=== PATIENT | female | born 1975 | race Caucasian/White ===

== ENCOUNTER 2018-02-12 12:06 | Emergency (ER) | payer OTHER ==
[2018-02-12] MEDS ORDERED: NS 1,000 ML IV ONE ×2 (12:38→14:00)
--- NOTE | 2018-02-12 12:41 | EDPHY ---
HPI/HX/ROS/PE/MDM Narrative: CHIEF COMPLAINT: Chest pain, weakness, drowsiness HISTORY OF PRESENT ILLNESS: The patient is a 42 y/o female with a history of asthma and anemia complaining of chest discomfort, tingling, dizziness, and lethargy which started this morning when she woke. She was on vacation in [place] and returned home last night. She felt normal in [place] and when she returned last night. She is living with her boyfriend who owns a carpet cleaning business and stores chemicals in the basement. They noticed a chemical smell when they entered the house, but that is not completely unusual. The cleaning chemicals are in bottles which have been capped. They believe the humidifier may have accelerated the evaporation of chemicals. This morning, she awoke with chest pain, fatigue, and weakness. She took her inhaler which helped slightly. She reports it feels hard to move. She denies headache, vomiting, urinary complaints, palpitations, fainting, abdominal pain, flank pain, urinary complaints. She denies using alcohol or other drugs. She denies any other recent travel. Her menstrual period is now and is normal. She has a tampon she inserted this morning. Her boyfriend, who also slept in the house last night, feels he may have some flu symptoms and chest pain. REVIEW OF SYSTEMS: Aside from elements discussed in the HPI, a comprehensive 10-point review of systems was reviewed and is negative. PAST MEDICAL HISTORY: Asthma, anemia, slightly low thyroid SOCIAL HISTORY: Lives with her boyfriend, unemployed, nonsmoker VITAL SIGNS: Reviewed by me. Patient has temperature on arrival of 38.4, she is tachycardic, and has a room air sat 91%. GENERAL: Well-developed, well-nourished, in no respiratory distress. Slightly pale, fluttering eyelids. Generally weak though questionable as to patient's effort. HEENT: Atraumatic. Eyes: No nystagmus. Fluttering eyelids. No icterus, no injection. Mouth: moist mucous membranes. No erythema or lesions. Neck: supple with no adenopathy. No meningismus. LUNGS: Lung sound diminished throughout. Clear to auscultation bilaterally, no wheezes, rhonchi or rales. CARDIAC: Tachycardic rate and rhythm, no rubs, murmurs or gallops. ABDOMEN: Soft, nontender, nondistended, bowel sounds normal. BACK: No CVA tenderness. EXTREMITIES: No trauma. No edema. Range of motion is normal throughout. NEURO: Alert and oriented, cranial nerves 2-12 intact. Patient is moving all extremities but reports significant weakness. There may be a volitional component to this. SKIN: Warm and dry, no rash. PSYCHIATRIC: Normal mentation, no agitation. ED Course: X-ray: Chest x-ray was obtained. I viewed the images myself on the PACS system. My interpretation of the images is: normal chest. The radiologist interpretation is pending at this time. I discussed the x-ray findings with the patient. The patient presents with a fever, tachycardia, slightly low oxygen level, and complaints of chest discomfort. She is slow to answer questions, fluttering eyes. She is tachycardic, febrile, and generally weak, though there is questionable effort. She feels the carpet cleaning chemicals in the basement of her boyfriends apartment may have poisoned her. She has diminished breath sounds. Plan for extensive labs including CBC, basic metabolic panel, lactic acid, liver enzymes, lipase, bilirubin, coagulation, TSH and respiratory panel, urinalysis, and chest x-ray. Patient's i-STAT is largely unremarkable with the exception of slight anemia. Lactic acid was normal. Patient declined chest x-ray initially. She received 2 L of normal saline and remained somewhat tachycardic. Patient did have respiratory pathogen panel sent. She would like to see these results before undergoing a chest x-ray. She feels strongly that she does not have a bacterial infection at, however, her only focal source for some type of infectious source seems to be pulmonary. Respiratory pathogen panel is negative. Chest x-ray demonstrates no infiltrate. Urinalysis has some white cells and bacteria, however, patient is on her period. She denies any clear urinary tract symptoms. This was sent for culture. Patient was re-evaluated on multiple occasions. Her heart remains persistently elevated. She reports that the albuterol neb improved her shortness of breath. Overall her mentation has significantly improved, she is bright, alert, and talking to me without difficulty. She does however complain of tingling from her elbows to her hands bilaterally. D-dimer was ordered. This is slightly elevated 0.53. Of note patient's TSH is also significantly suppressed at 0.431. Free T4 is normal. Patient is in agreement to have a CT scan of her chest to evaluate for pulmonary embolism as an explanation for her persistent tachycardia and respiratory complaints. CT for pulmonary embolism is negative. On re-evaluation, patient continues to have a low-grade tachycardia. She reports persistant tingling in upper extemities from elbows down. On review of patients VBG, she is mildly acidotic and I suspect she may be hyperventilating with resultant perithesias. Denies headache, neck pain, focal weakness, stroke history. She was discharged with instructions regarding remaining adequately hydrated, Tylenol or ibuprofen as needed for fever, follow up with her primary care physician regarding her thyroid function, continue to use her albuterol inhaler , and take prednisone is indicated. Sepsis Evaluation Note: The patient presents to the ED with potential infection identified as pneumonia versus urinary tract infection. The patient did have evidence of sepsis with temperature greater than 38 degree Celsius, heart rate greater than 90, and WBC greater than 12,000. She had a normal lactic acid and otherwise normal labs. She does not have any evidence of severe sepsis. MDM: Differential diagnoses for the patient's symptom complex was considered including but not limited to asthma exacerbation, pneumonia, influenza, viral syndrome, urinary tract infection, toxic shock, chemical pneumonitis, pulmonary embolism. - Data Points Imaging Results: Imaging Impressions Chest X-Ray 02/12/18 12:36 Impression: Normal chest x-ray. Chest/Thorax CTA 02/12/18 16:42 Impression: 1. No evidence of pulmonary embolus using CT protocol. 2. Normal CT chest. Findings discussed with Ellen Prado MD at 17:18 hour, 02/12/2018. Laboratory Results: Laboratory Results 02/12/18 12:45 02/12/18 12:45 02/12/18 02/12/18 02/12/18 13:50 12:45 12:45 WBC RBC Hgb POC Hgb Hct POC Hct MCV MCH MCHC RDW Plt Count MPV Neut % (Auto) Lymph % (Auto) Meigs % (Auto) Eos % (Auto) Baso % (Auto) Nucleat RBC Rel Count Absolute Neuts (auto) Absolute Lymphs (auto) Absolute Monos (auto) Absolute Eos (auto) Absolute Basos (auto) Absolute Nucleated RBC Immature Gran % Immature Gran # RBC/WBC/PLT Morphology Platelet Estimate PT INR APTT D-Dimer POC Blood Source Patient Temperature POC VBG pH POC VBG pCO2 POC VBG pO2 POC VBG HCO3 POC VBG Total CO2 POC VBG Base Excess VBG Lactic Acid POC Mix VBG O2 Sat POC Sodium Sodium POC Potassium Potassium POC Chloride Chloride Carbon Dioxide Anion Gap POC BUN BUN Creatinine POC Creatinine Estimated GFR Glucose POC Glucose POC Lactic Acid Roberto Carlos Calcium Total Bilirubin Conjugated Bilirubin Unconjugated Bilirubin AST ALT Alkaline Phosphatase Total Protein Albumin Lipase TSH Free T4 1.54 ng/dL ng/dL (0.59-2.19) Beta HCG, Qual NEGATIVE Urine Color PALE YELLOW Urine Appearance CLEAR Urine pH 6.0 (5.0-7.5) Ur Specific [place] 1.001 L (1.002-1.030) Urine Protein NEGATIVE (NEGATIVE) Urine Ketones NEGATIVE (NEGATIVE) Urine Blood 2+ H (NEGATIVE) Urine Nitrate NEGATIVE (NEGATIVE) Urine Bilirubin NEGATIVE (NEGATIVE) Urine Urobilinogen NEGATIVE EU EU (0.2-1.0) Ur Leukocyte Esterase 2+ H (NEGATIVE) Urine RBC 3-5 /hpf H /hpf (0-3) Urine WBC 10-15 /hpf H /hpf (0-3) Ur Epithelial Cells TRACE /lpf /lpf (NONE-1+) Urine Bacteria TRACE /hpf H /hpf (NONE SEEN) Urine Glucose NEGATIVE (NEGATIVE) 02/12/18 02/12/18 02/12/18 12:45 12:45 12:45 WBC 16.70 10^3/uL H 10^3/uL (3.80-9.50) RBC 3.94 10^6/uL L 10^6/uL (4.18-5.33) Hgb 11.4 g/dL L g/dL (12.6-16.3) POC Hgb Hct 34.4 % L % (38.0-47.0) POC Hct MCV 87.3 fL fL (81.5-99.8) MCH 28.9 pg pg (27.9-34.1) MCHC 33.1 g/dL g/dL (32.4-36.7) RDW 15.1 % % (11.5-15.2) Plt Count 223 10^3/uL 10^3/uL (150-400) MPV 10.0 fL fL (8.7-11.7) Neut % (Auto) 92.0 % H % (39.3-74.2) Lymph % (Auto) 3.1 % L % (15.0-45.0) Meigs % (Auto) 4.1 % L % (4.5-13.0) Eos % (Auto) 0.2 % L % (0.6-7.6) Baso % (Auto) 0.2 % L % (0.3-1.7) Nucleat RBC Rel Count 0.0 % % (0.0-0.2) Absolute Neuts (auto) 15.36 10^3/uL H 10^3/uL (1.70-6.50) Absolute Lymphs (auto) 0.52 10^3/uL L 10^3/uL (1.00-3.00) Absolute Monos (auto) 0.68 10^3/uL 10^3/uL (0.30-0.80) Absolute Eos (auto) 0.04 10^3/uL 10^3/uL (0.03-0.40) Absolute Basos (auto) 0.04 10^3/uL 10^3/uL (0.02-0.10) Absolute Nucleated RBC 0.00 10^3/uL 10^3/uL (0-0.01) Immature Gran % 0.4 % % (0.0-1.1) Immature Gran # 0.06 10^3/uL 10^3/uL (0.00-0.10) RBC/WBC/PLT Morphology TNP Platelet Estimate TNP PT 14.5 SEC SEC (12.0-15.0) INR 1.11 (0.83-1.16) APTT 23.2 SEC SEC (23.0-38.0) D-Dimer POC Blood Source Patient Temperature POC VBG pH POC VBG pCO2 POC VBG pO2 POC VBG HCO3 POC VBG Total CO2 POC VBG Base Excess VBG Lactic Acid 1.2 mmol/L mmol/L (0.7-2.1) POC Mix VBG O2 Sat POC Sodium Sodium POC Potassium Potassium POC Chloride Chloride Carbon Dioxide Anion Gap POC BUN BUN Creatinine POC Creatinine Estimated GFR Glucose POC Glucose POC Lactic Acid [place] Calcium Total Bilirubin Conjugated Bilirubin Unconjugated Bilirubin AST ALT Alkaline Phosphatase Total Protein Albumin Lipase TSH Free T4 Beta HCG, Qual Urine Color Urine Appearance Urine pH Ur Specific [place] Urine Protein Urine Ketones Urine Blood Urine Nitrate Urine Bilirubin Urine Urobilinogen Ur Leukocyte Esterase Urine RBC Urine WBC Ur Epithelial Cells Urine Bacteria Urine Glucose 02/12/18 02/12/18 02/12/18 12:45 12:37 12:25 WBC RBC Hgb POC Hgb 11.9 gm/dL L gm/dL (12.6-16.3) Hct POC Hct 35 % L % (38-47) MCV MCH MCHC RDW Plt Count MPV Neut % (Auto) Lymph % (Auto) [place] % (Auto) Eos % (Auto) Baso % (Auto) Nucleat RBC Rel Count Absolute Neuts (auto) Absolute Lymphs (auto) Absolute Monos (auto) Absolute Eos (auto) Absolute Basos (auto) Absolute Nucleated RBC Immature Gran % Immature Gran # RBC/WBC/PLT Morphology Platelet Estimate PT INR APTT D-Dimer POC Blood Source VENOUS Patient Temperature 38.2 DEGREES DEGREES POC VBG pH 7.47 H (7.31-7.42) POC VBG pCO2 32 mmHg L mmHg (40-44) POC VBG pO2 39 mmHg mmHg (35-40) POC VBG HCO3 23 mEq/L mEq/L (22-26) POC VBG Total CO2 24 mEq/L mEq/L (21-27) POC VBG Base Excess -1.0 mEq/L mEq/L (-2.5-2.5) VBG Lactic Acid POC Mix VBG O2 Sat 75 % % (65-75) POC Sodium 140 mEq/L mEq/L (135-145) Sodium 136 mEq/L mEq/L (135-145) POC Potassium 3.6 mEq/L mEq/L (3.3-5.0) Potassium 3.7 mEq/L mEq/L (3.3-5.0) POC Chloride 104 mEq/L mEq/L (97-110) Chloride 104 mEq/L mEq/L (97-110) Carbon Dioxide 24 mEq/l mEq/l (22-31) Anion Gap 8 mEq/L mEq/L (8-16) POC BUN 10 mg/dL mg/dL (7-23) BUN 12 mg/dL mg/dL (7-23) Creatinine 0.7 mg/dL mg/dL (0.6-1.0) POC Creatinine 0.8 mg/dL mg/dL (0.6-1.0) Estimated GFR > 60 Glucose 97 mg/dL mg/dL (70-100) POC Glucose 103 mg/dL H mg/dL (70-100) POC Lactic Acid Roberto [place] 1.0 mmol/L mmol/L (0.7-2.1) Calcium 8.8 mg/dL mg/dL (8.5-10.4) Total Bilirubin 0.5 mg/dL mg/dL (0.1-1.4) Conjugated Bilirubin 0.3 mg/dL mg/dL (0.0-0.5) Unconjugated Bilirubin 0.2 mg/dL mg/dL (0.0-1.1) AST 18 IU/L IU/L (14-46) ALT 29 IU/L IU/L (9-52) Alkaline Phosphatase 42 IU/L IU/L (38-126) Total Protein 6.5 g/dL g/dL (6.3-8.2) Albumin 3.6 g/dL g/dL (3.5-5.0) Lipase 104 IU/L IU/L (23-300) TSH 0.431 uIU/mL L uIU/mL (0.465-4.680) Free T4 Beta HCG, Qual Urine Color Urine Appearance Urine pH Ur Specific [place] Urine Protein Urine Ketones Urine Blood Urine Nitrate Urine Bilirubin Urine Urobilinogen Ur Leukocyte Esterase Urine RBC Urine WBC Ur Epithelial Cells Urine Bacteria Urine Glucose 02/12/18 12:15 WBC RBC Hgb POC Hgb Hct POC Hct MCV MCH MCHC RDW Plt Count MPV Neut % (Auto) Lymph % (Auto) [place] % (Auto) Eos % (Auto) Baso % (Auto) Nucleat RBC Rel Count Absolute Neuts (auto) Absolute Lymphs (auto) Absolute Monos (auto) Absolute Eos (auto) Absolute Basos (auto) Absolute Nucleated RBC Immature Gran % Immature Gran # RBC/WBC/PLT Morphology Platelet Estimate PT INR APTT D-Dimer 0.53 ug/mLFEU H ug/mLFEU (0.00-0.50) POC Blood Source Patient Temperature POC VBG pH POC VBG pCO2 POC VBG pO2 POC VBG HCO3 POC VBG Total CO2 POC VBG Base Excess VBG Lactic Acid POC Mix VBG O2 Sat POC Sodium Sodium POC Potassium Potassium POC Chloride Chloride Carbon Dioxide Anion Gap POC BUN BUN Creatinine POC Creatinine Estimated GFR Glucose POC Glucose POC Lactic Acid [place] Calcium Total Bilirubin Conjugated Bilirubin Unconjugated Bilirubin AST ALT Alkaline Phosphatase Total Protein Albumin Lipase TSH Free T4 Beta HCG, Qual Urine Color Urine Appearance Urine pH Ur Specific [place] Urine Protein Urine Ketones Urine Blood Urine Nitrate Urine Bilirubin Urine Urobilinogen Ur Leukocyte Esterase Urine RBC Urine WBC Ur Epithelial Cells Urine Bacteria Urine Glucose Medications Given: Discontinued Medications Acetaminophen (Tylenol) 1,000 mg PO EDNOW ONE Stop: 02/12/18 13:03 Last Admin: 02/12/18 16:26 Dose: 1,000 mg Albuterol (Proventil Neb) 3 ml IH EDNOW ONE Stop: 02/12/18 13:03 Last Admin: 02/12/18 13:16 Dose: 3 ml Sodium Chloride (Ns) 1,000 mls @ 0 mls/hr IV ONCE ONE; Wide Open PRN Reason: Protocol Stop: 02/12/18 12:39 Last Admin: 02/12/18 13:15 Dose: 1,000 mls Sodium Chloride (Ns) 1,000 mls @ 0 mls/hr IV ONCE ONE; Wide Open PRN Reason: Protocol Stop: 02/12/18 14:01 Last Admin: 02/12/18 14:03 Dose: 1,000 mls Ibuprofen (Motrin) 600 mg PO EDNOW ONE Stop: 02/12/18 13:03 Last Admin: 02/12/18 16:26 Dose: 600 mg Methylprednisolone Sodium Succinate (Solu-Medrol) 125 mg IVP EDNOW ONE Stop: 02/12/18 16:14 Last Admin: 02/12/18 16:26 Dose: 125 mg Point of Care Test Results: Chemistry 02/12/18 12:25 POC Sodium 140 mEq/L mEq/L (135-145) POC Potassium 3.6 mEq/L mEq/L (3.3-5.0) POC Chloride 104 mEq/L mEq/L (97-110) POC BUN 10 mg/dL mg/dL (7-23) POC Creatinine 0.8 mg/dL mg/dL (0.6-1.0) POC Glucose 103 mg/dL H mg/dL (70-100) Blood Gas/Lactic Acid-Arterial 02/12/18 12:37 POC Blood Source VENOUS Blood Gas/Lactic Acid-Venous 02/12/18 12:37 POC VBG pH 7.47 H (7.31-7.42) POC VBG pCO2 32 mmHg L mmHg (40-44) POC VBG pO2 39 mmHg mmHg (35-40) POC VBG HCO3 23 mEq/L mEq/L (22-26) POC VBG Total CO2 24 mEq/L mEq/L (21-27) POC VBG Base Excess -1.0 mEq/L mEq/L (-2.5-2.5) POC Mix VBG O2 Sat 75 % % (65-75) POC Lactic Acid Roberto Carlos 1.0 mmol/L mmol/L (0.7-2.1) ISTAT H&H 02/12/18 12:25 POC Hgb 11.9 gm/dL L gm/dL (12.6-16.3) POC Hct 35 % L % (38-47) Microbiology Results: MICROBIOLOGY 02/12/18 13:00 Nasal, Sinus - Swab Respiratory Panel (PCR) - Final No Organism Detected General Initial Vital Signs: Initial Vital Signs Temperature (C) 38.2 C 02/12/18 12:08 Heart Rate 118 H 02/12/18 12:08 Respiratory Rate 16 02/12/18 12:08 Blood Pressure 112/68 02/12/18 12:08 O2 Sat (%) 90 L 02/12/18 12:08 O2 Delivery Mode Room Air O2 (L/minute) 2 Allergies/Adverse Reactions: No Known Allergies Allergy (Unverified 02/12/18 14:06) Home Medications: Medication Instructions Recorded Albuterol 02/12/18 Cephalexin [Keflex (RX)] 500 mg PO TID 7 Days cap 02/12/18 predniSONE 40 mg PO DAILY #6 tab 02/12/18 Departure - Departure Disposition: Home, Routine, Self-Care Clinical Impression: Tachycardia Dyspnea Qualifiers: Dyspnea type: unspecified Qualified Code(s): R06.00 - Dyspnea, unspecified Asthma Qualifiers: Asthma severity: mild Asthma persistence: intermittent Asthma complication type : with acute exacerbation Qualified Code(s): J45.21 - Mild intermittent asthma with (acute) exacerbation Condition: Good Instructions: Cephalexin (By mouth), Prednisone (By mouth), Asthma (ED), Hyperthyroidism (ED), Dyspnea (ED) Additional Instructions: Please take the prednisone as directed. This will help with any inflammation irritation in her lung secondary to chemical exposure verses viral infection. Please continue to use your albuterol inhaler. Please drink plenty of fluids and get plenty of rest. Please follow up with primary care physician on Thursday for further evaluation of your thyroid abnormalities. Your urine has been sent for culture. The results of the urine culture will be available in 24-36 hr. If you do have a urinary tract infection, encourage you to take antibiotics as directed. Referrals: NONE *PRIMARY CARE P,. [Primary Care Provider] - As per Instructions Kirti Sandoval MD [Medical Doctor] - As per Instructions (Follow up with Dr. Sandoval or physician of your choice without fail if you're not improving as expected over the next 2-3 days. ) Prescriptions: Cephalexin [Keflex (RX)] 500 mg PO TID 7 Days cap predniSONE 40 mg PO DAILY #6 tab Report Scribed for: Ellen Prado Report Scribed by: Claudia Dhillon Date of Report: 02/12/18 Time of Report: 15:37 Physician Review and Approval Statement: Portions of this note were transcribed by a medical investigator. I personally performed a history, physical exam, medical decision making, and confirmed accuracy of information the transcribed note.
[2018-02-12 13:01] LABS: PLATELET COUNT 223 10^3/uL (150-400)
[2018-02-12] MEDS ORDERED: IBUPROFEN 600 MG TAB PO ONE (13:02)
[2018-02-12] MEDS ORDERED: ACETAMINOPHEN 500 MG TAB PO ONE (13:02)
[2018-02-12] MEDS ORDERED: ALBUTEROL 3 ML DEYVIAL IH ONE (13:02)
[2018-02-12 13:05] LABS: INR 1.11 (0.83-1.16); PROTIME(PATIENT) 14.5 SEC (12.0-15.0)
[2018-02-12] MEDS ORDERED: methylPREDNISolone SOD SUCC 125 MG/2 ML VIAL IVP ONE (16:13)
[2018-02-12] MEDS ORDERED: IOPAMIDOL (ISOVUE 370) 100 ML BTL IV ONE (16:48)
[2018-02-12 17:36] VITALS: BP 101/56
== END 2018-02-12 17:34 | disposition home or self-care (01) ==
DX: J45.21 Mild intermittent asthma with (acute) exacerbation (principal); E86.9 Volume depletion, unspecified
CPT/HCPCS: 82435-PO; 82565-PO; 82947-PO; 83605-PO; 84132-PO; 84295-PO; 84520-PO; 85014-PO; 96374; J2930; J7613; Q9967